=== PATIENT | male | born 1960 | race Asian ===

== ENCOUNTER → 2017-04-01 | Outpatient (CLI) | payer BC | END | disposition home or self-care (01) | LOC: RADPV 14:03 | PROVIDERS: ATTEND Internal Medicine | DX: M46.02 Spinal enthesopathy, cervical region (principal); M25.512 Pain in left shoulder | CPT/HCPCS: 72040 ==

== ENCOUNTER → 2017-06-17 | Outpatient (CLI) | payer BC | END | disposition home or self-care (01) | LOC: RADMN 08:26 | PROVIDERS: ATTEND Physical Medicine & Rehabilitation Spinal Cord Injury Medicine | DX: M47.812 Spondylosis without myelopathy or radiculopathy, cervical region (principal); M25.78 Osteophyte, vertebrae; M50.223 Other cervical disc displacement at C6-C7 level; M48.02 Spinal stenosis, cervical region; M51.86 Other intervertebral disc disorders, lumbar region; M51.26 Other intervertebral disc displacement, lumbar region; M48.06 Spinal stenosis, lumbar region; M51.87 Other intervertebral disc disorders, lumbosacral region; M75.112 Incomplete rotator cuff tear or rupture of left shoulder, not specified as traumatic; M54.17 Radiculopathy, lumbosacral region | CPT/HCPCS: 72141; 72148; 73221 ==